=== PATIENT | female | born 1985 | race African-American/Black ===

== ENCOUNTER 2019-01-06 22:18 | Emergency (ER) | payer SELFPAY ==
[~2019-01-06] VITALS: Ht 154.9 cm; Wt 99.8 kg
--- NOTE | 2019-01-06 22:57 | PHYS DOC ---
Adult General Chief Complaint Chief Complaint: CHEST PAIN HPI HPI Patient is a 33-year-old female who presents with complaint of left-sided chest pain that started about 4 and half hours ago. Patient states that onset of chest pain was at rest while she was watching TV. She states that initially the pain was about a 3 out of 10 but currently it is a 7 out of 10. She describes the pain as a heaviness/tightness. She states that she has had a little bit of nausea but states that she always has nausea. 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 Review of Systems Review of Systems Constitutional: Denies fever or chills [] Respiratory: Denies cough or shortness of breath [] Cardiovascular: No additional information not addressed in HPI [] GI: Denies abdominal pain. Positive nausea without vomiting. [] Integument: Denies rash or skin lesions [] All other systems were reviewed and found to be within normal limits, except as documented in this note. Current Medications Current Medications Current Medications Medications (Trade) Dose Ordered Sig/Eduin Start Time Stop Time Status Last Admin Dose Admin Aspirin (Children'S Aspirin) 324 mg 1X ONCE 01/06/19 23:30 01/06/19 23:31 DC Metronidazole (Flagyl) 500 mg 1X ONCE 01/07/19 00:30 01/07/19 00:31 Sodium Chloride 1,000 ml @ 100 mls/hr Q10H 01/06/19 23:30 01/07/19 09:29 01/06/19 23:09 100 MLS/HR Tramadol HCl (Ultram) 50 mg 1X ONCE 01/07/19 00:30 01/07/19 00:31 Allergies Allergies Allergies Coded Allergies Type Severity Reaction Last Updated Verified ketorolac Allergy Intermediate hives 01/06/19 Yes lamotrigine Allergy Intermediate Hives 01/06/19 Yes lisinopril Allergy Intermediate 01/06/19 Yes Physical Exam Physical Exam Constitutional: Well developed, well nourished, no acute distress, non-toxic appearance. [] HENT: Normocephalic, atraumatic, bilateral external ears normal, oropharynx moist, no oral exudates, nose normal. [] Eyes: PERRLA, EOMI, conjunctiva normal, no discharge. [] Neck: Normal range of motion, no tenderness, supple, no stridor. [] Cardiovascular:Heart rate regular rhythm, no murmur [] Lungs & Thorax: Bilateral breath sounds clear to auscultation [] Abdomen: Bowel sounds normal, soft, no tenderness. [] Skin: Warm, dry, no erythema, no rash. [] Extremities: No tenderness, no cyanosis, no clubbing, ROM intact, no edema. [] Neurologic: Alert and oriented X 3, no focal deficits noted. [] Current Patient Data Vital Signs Vital Signs Date Time Temp Pulse Resp B/P (MAP) Pulse Ox O2 Delivery O2 Flow Rate FiO2 01/06/19 22:25 97.9 91 20 148/87 (107) 96 Room Air 97.9 Lab Values Laboratory Tests Test 01/06/19 22:37 01/06/19 22:42 01/06/19 22:46 White Blood Count 9.6 x10^3/uL (4.0-11.0) Red Blood Count 3.90 x10^6/uL (3.50-5.40) Hemoglobin 10.8 g/dL (12.0-15.5) L Hematocrit 33.6 % (36.0-47.0) L Mean Corpuscular Volume 86 fL (79-100) Mean Corpuscular Hemoglobin 28 pg (25-35) Mean Corpuscular Hemoglobin Concent 32 g/dL (31-37) Red Cell Distribution Width 15.6 % (11.5-14.5) H Platelet Count 366 x10^3/uL (140-400) Neutrophils (%) (Auto) 56 % (31-73) Lymphocytes (%) (Auto) 30 % (24-48) Monocytes (%) (Auto) 10 % (0-9) H Eosinophils (%) (Auto) 4 % (0-3) H Basophils (%) (Auto) 1 % (0-3) Neutrophils # (Auto) 5.3 x10^3uL (1.8-7.7) Lymphocytes # (Auto) 2.9 x10^3/uL (1.0-4.8) Monocytes # (Auto) 0.9 x10^3/uL (0.0-1.1) Eosinophils # (Auto) 0.4 x10^3/uL (0.0-0.7) Basophils # (Auto) 0.1 x10^3/uL (0.0-0.2) D-Dimer (Taylor) 0.36 ug/mlFEU (0.00-0.50) Sodium Level 140 mmol/L (136-145) Potassium Level 3.4 mmol/L (3.5-5.1) L Chloride Level 104 mmol/L (98-107) Carbon Dioxide Level 26 mmol/L (21-32) Anion Gap 10 (6-14) Blood Urea Nitrogen 12 mg/dL (7-20) Creatinine 0.7 mg/dL (0.6-1.0) Estimated GFR (Cockcroft-Gault) 117.3 BUN/Creatinine Ratio 17 (6-20) Glucose Level 99 mg/dL (70-99) Calcium Level 9.0 mg/dL (8.5-10.1) Magnesium Level 1.9 mg/dL (1.8-2.4) Total Bilirubin 0.3 mg/dL (0.2-1.0) Aspartate Amino Transferase (AST) 18 U/L (15-37) Alanine Aminotransferase (ALT) 21 U/L (14-59) Alkaline Phosphatase 90 U/L (46-116) Troponin I Quantitative < 0.017 ng/mL (0.000-0.055) Total Protein 7.8 g/dL (6.4-8.2) Albumin 3.3 g/dL (3.4-5.0) L Albumin/Globulin Ratio 0.7 (1.0-1.7) L Urine Collection Type Void Urine Color Yellow Urine Clarity Clear Urine pH 7.0 Urine Specific [place] 1.020 Urine Protein Negative mg/dL (NEG-TRACE) Urine Glucose (UA) Negative mg/dL (NEG) Urine Ketones (Stick) Negative mg/dL (NEG) Urine Blood Negative (NEG) Urine Nitrite Negative (NEG) Urine Bilirubin Negative (NEG) Urine Urobilinogen Dipstick 1.0 mg/dL (0.2 mg/dL) Urine Leukocyte Esterase Moderate (NEG) Urine RBC 6-10 /HPF (0-2) Urine WBC >40 /HPF (0-4) Urine Squamous Epithelial Cells Mod /LPF Urine Amorphous Sediment Present /HPF Urine Bacteria Few /HPF (0-FEW) Urine Mucus Marked /LPF Urine Trichomonas Present POC Urine HCG, Qualitative Hcg negative (Negative) Laboratory Tests 01/06/19 22:37 Laboratory Tests 01/06/19 22:37 EKG EKG [] Interpretation Time: EKG demonstrates normal sinus rhythm with rate of 90. Radiology/Procedures Radiology/Procedures [] Impressions: Chest x-ray demonstrates no acute process Course & Med Decision Making Course & Med Decision Making Pertinent Labs and Imaging studies reviewed. (See chart for details) [] Dragon Disclaimer Dragon Disclaimer This electronic medical record was generated, in whole or in part, using a voice recognition dictation system. Departure Departure Impression: Primary Impression: Atypical chest pain Additional Impression: Trichomoniasis of vagina Disposition: HOME, SELF-CARE Condition: STABLE Patient Instructions: Chest Pain (Nonspecific), Trichomoniasis Scripts Metronidazole (FLAGYL) 500 Mg Tablet 1 TAB PO BID, #14 TAB Prov: SOHA BURCIAGA Jr. DO 01/07/19 Tramadol Hcl (TRAMADOL HCL) 50 Mg Tablet 50 MG PO Q6HRS PRN for PAIN, #10 TAB Prov: SOHA BURCIAGA Jr. DO 01/07/19 Problem Qualifiers SOHA BURCIAGA Jr. DO Jan 06, 2019 22:57
[2019-01-06 22:58] LABS: BILIRUBIN,URINE NEGATIVE (NEG); CLARITY,URINE CLEAR; COLOR,URINE YELLOW; NITRITE,URINE NEGATIVE (NEG); PROTEIN,URINE NEGATIVE (NEG-TRACE)
[2019-01-06 23:06] LABS: BASO # 0.1 x10^3/uL (0.0-0.2); BASO % 1 % (0-3); EOS # 0.4 x10^3/uL (0.0-0.7); EOS % 4 % (0-3); HEMATOCRIT 33.6 % (36.0-47.0); HEMOGLOBIN 10.8 g/dL (12.0-15.5); LYMPH # 2.9 x10^3/uL (1.0-4.8); LYMPH % 30 % (24-48); MEAN CORPUSCULAR HEMOGLOBIN 28 pg (25-35); MEAN CORPUSCULAR HGB CONC 32 g/dL (31-37); MEAN CORPUSCULAR VOLUME 86 fL (79-100); MONO # 0.9 x10^3/uL (0.0-1.1); MONO % 10 % (0-9); NEUT # 5.3 x10^3uL (1.8-7.7); NEUT % 56 % (31-73); PLATELET COUNT 366 x10^3/uL (140-400); RED CELL DISTRIBUTION WIDTH 15.6 % (11.5-14.5); WHITE BLOOD COUNT 9.6 x10^3/uL (4.0-11.0)
[2019-01-06 23:07] LABS: CREATININE 0.7 mg/dL (0.6-1.0); GFR 117.3; POTASSIUM 3.4 mmol/L (3.5-5.1)
[2019-01-06 23:10] LABS: WBC,URINE >40 /HPF (0-4)
[2019-01-06 23:11] LABS: AMORPHOUS SEDIMENT,UR PRESENT /HPF; BACTERIA,URINE FEW /HPF (0-FEW); SQUAMOUS EPITHELIAL CELL,UR MOD /LPF; TRICHOMONAS,URINE PRESENT
[2019-01-06 23:13] LABS: ALBUMIN 3.3 g/dL (3.4-5.0); ALBUMIN/GLOBULIN RATIO 0.7 (1.0-1.7); MAGNESIUM 1.9 mg/dL (1.8-2.4); TOTAL BILIRUBIN 0.3 mg/dL (0.2-1.0); TOTAL PROTEIN 7.8 g/dL (6.4-8.2)
[2019-01-06] MEDS ORDERED: ASPIRIN CHEWABLE 81 MG TABLET. PO ONE (23:30)
[2019-01-06] MEDS ORDERED: IV NORMAL SALINE 1000ML BAG 1,000 ML IV SCH (23:30)
[2019-01-07 00:07] VITALS: BP 145/81
[2019-01-07] MEDS ORDERED: METR500T PO (00:10)
[2019-01-07] MEDS ORDERED: TRAM50TA PO (00:10)
[2019-01-07] MEDS ORDERED: LORazepam 1 MG TABLET PO ONE (00:30)
[2019-01-07] MEDS ORDERED: metroNIDAZOLE 500 MG TABLET PO ONE (00:30)
[2019-01-07] MEDS ORDERED: traMADol 50 MG TABLET PO ONE (00:30)
--- NOTE | 2019-01-07 05:09 | EKG ---
[facility] [address] [place] [address] Test Date: 2019-01-06 Test Time: 22:27:20 Pat Name: MAXIMILIANO POLO Department: Room: Gender: F [employer]: : 1985 Requested By: SOHA BURCIAGA Order Number: [id number] Reading MD: Andrea Arteaga Measurements Intervals [place] Rate: 90 P: 26 GA: 148 QRS: 19 QRSD: 80 T: 23 QT: 364 QTc: 449 Interpretive Statements SINUS RHYTHM NORMAL ECG RI6.01 No previous ECG available for comparison Electronically Signed On 01-12-2019 13:10:54 CDT by Andrea Arteaga
--- NOTE | 2019-01-07 08:34 | RAD ---
Examination: PORTABLE CHEST 1V History: CHEST PAIN X TONIGHT Comparison/Correlation: None Findings: Portable upright frontal view of the chest was obtained. Heart size and pulmonary vasculature are normal. No infiltrate or pleural effusion. No pneumothorax. Bony structures are unremarkable. Impression: No active disease. Electronically signed by: Mark Monroe MD (01/07/2019 8:31 AM) [id number]
== END 2019-01-07 00:45 | disposition home or self-care (01) ==
LOC: ER 22:18
DX: R07.89 Other chest pain (principal); A59.01 Trichomonal vulvovaginitis; R11.0 Nausea; Z86.718 Personal history of other venous thrombosis and embolism; Z79.82 Long term (current) use of aspirin; Z88.8 Allergy status to other drugs, medicaments and biological substances
CPT/HCPCS: 36415; 71045; 80053; 81001; 81025; 83735; 84484; 85025; 85379; 87086; 93005; 99285; J7030

== ENCOUNTER 2019-01-22 17:40 | Emergency (ER) | payer SELFPAY ==
[~2019-01-22] VITALS: Ht 154.9 cm; Wt 99.8 kg
[~2019-01-22 17:40] MED LIST: METR500T PO; TRAM50TA PO
[2019-01-22 17:43] VITALS: BP 170/96
[2019-01-22] MEDS ORDERED: METH-37 PO (17:57)
--- NOTE | 2019-01-22 17:58 | PHYS DOC ---
Past Medical History Past Medical History: DVT, Hypertension (ABI HANNA) Past Surgical History: Cholecystectomy, Tubal ligation, Other Additional Past Surgical Histo: RT knee, rotator cuff repair (ABI HANNA) Alcohol Use: Occasionally Drug Use: None (ABI HANNA) Adult General Chief Complaint Chief Complaint: LOWER BACK PAIN OR INJURY [facility] HPI Patient is a 33 year old female presents to the ED complaining of back pain times one day ago. 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 Describes the pain as sharp. Rates pain as 6 out of 10. States that she has pain with range of motion. Patients able to ambulate without assistance. Denies bowel/bladder changes, saddle anesthesia, fever, radiating pain, weakness, nausea/vomiting, diarrhea, chest pain or shortness of breath. (ABI HANNA) Review of Systems Review of Systems Constitutional: Denies fever or chills [] Eyes: Denies change in visual acuity, redness, or eye pain [] HENT: Denies nasal congestion or sore throat [] Respiratory: Denies cough or shortness of breath [] Cardiovascular: No additional information not addressed in HPI [] GI: Denies abdominal pain, nausea, vomiting, bloody stools or diarrhea [] : Denies dysuria or hematuria [] Musculoskeletal: Complains of back pain. Denies joint pain [] Integument: Denies rash or skin lesions [] Neurologic: Denies headache, focal weakness or sensory changes [] All other systems were reviewed and found to be within normal limits, except as documented in this note. (ABI HANNA) Allergies Allergies Allergies Coded Allergies Type Severity Reaction Last Updated Verified ketorolac Allergy Intermediate hives 01/06/19 Yes lamotrigine Allergy Intermediate Hives 01/06/19 Yes lisinopril Allergy Intermediate 01/06/19 Yes (GOLLAPALLI,JACI E DO) Physical Exam Physical Exam Constitutional: Well developed, well nourished, no acute distress, non-toxic appearance. [] HENT: Normocephalic, atraumatic. Eyes: PERRLA, EOMI, conjunctiva normal, no discharge. [] Neck: Normal range of motion, no tenderness, supple, no stridor. [] Cardiovascular:Heart rate regular rhythm, no murmur [] Lungs & Thorax: Bilateral breath sounds clear to auscultation [] Abdomen: Bowel sounds normal, soft, no tenderness, no masses, no pulsatile masses. [] Skin: Warm, dry, no erythema, no rash. [] Back: Mild right lateral muscle spasm. No bony tenderness, FROM, NV intact. No overlying skin changes. no CVA tenderness. [] Extremities: No tenderness, no cyanosis, no clubbing, ROM intact, no edema. [] Neurologic: Alert and oriented X 3, normal motor function, normal sensory function, no focal deficits noted. DTR's intact.[] Psychologic: Affect normal, judgement normal, mood normal. [] (ABI HANNA) Current Patient Data Vital Signs Vital Signs Date Time Temp Pulse Resp B/P (MAP) Pulse Ox O2 Delivery O2 Flow Rate FiO2 01/22/19 17:43 98.6 77 16 170/96 (120) 99 Room Air 98.6 (JACI MACIEL DO) EKG EKG [] (ABI HANNA) Radiology/Procedures Radiology/Procedures [] (ABI HANNA) Course & Med Decision Making Course & Med Decision Making Pertinent Labs and Imaging studies reviewed. (See chart for details) []No bony tenderness. Full range of motion. Neurovascular intact. No focal neural deficits. Patient able to ambulate without assistance. Discussed symptomatic treatment and follow-up outpatient if pain persists. Provided contact information/education. Discussed reasons to return to the ED. Patient understands and agrees with plan. (ABI HANNA) Dragon Disclaimer Dragon Disclaimer This electronic medical record was generated, in whole or in part, using a voice recognition dictation system. (ABI HANNA) Dragon Disclaimer The mid level provide has independently evaluated and treated the patient. I was available for consultation by the mid level provider. I agree with the care provided by the mid level provider. (JACI MACIEL DO) Departure Departure Impression: Primary Impression: Muscle strain Disposition: 01 HOME, SELF-CARE Condition: IMPROVED Referrals: NO PCP (PCP) ERIN MARK II, MD Patient Instructions: Muscle Strain Scripts Methocarbamol (ROBAXIN) 500 Mg Tablet 1 TAB PO BID for 5 Days, #10 TAB Prov: ABI HANNA 01/22/19 ABI HANNA January 22, 2019 17:58 JACI MACIEL DO January 23, 2019 04:39
== END 2019-01-22 18:08 | disposition home or self-care (01) ==
LOC: ER 17:40
DX: S39.012A Strain of muscle, fascia and tendon of lower back, initial encounter (principal); I10 Essential (primary) hypertension; Z86.718 Personal history of other venous thrombosis and embolism; Z98.51 Tubal ligation status; Z90.49 Acquired absence of other specified parts of digestive tract; Z88.8 Allergy status to other drugs, medicaments and biological substances; X50.9XXA Other and unspecified overexertion or strenuous movements or postures, initial encounter; Y93.89 Activity, other specified; Y92.89 Other specified places as the place of occurrence of the external cause; Y99.8 Other external cause status
CPT/HCPCS: 99283

== ENCOUNTER 2019-02-17 17:00 | Emergency (ER) | payer OTHER, SELFPAY ==
[~2019-02-17] VITALS: Ht 154.9 cm; Wt 99.8 kg
[~2019-02-17 17:00] MED LIST changes: +METH-37 PO
--- NOTE | 2019-02-17 17:40 | PHYS DOC ---
Past Medical History Past Medical History: DVT, Hypertension Past Surgical History: Cholecystectomy, Tubal ligation, Other Additional Past Surgical Histo: RT knee, rotator cuff repair Alcohol Use: Occasionally Drug Use: None Adult General Chief Complaint Chief Complaint: LOWER EXT PAIN HPI HPI Patient is a 33 year old female with a history of DVT presents to the ED complaining of left calf pain x 3 days ago. Patient had a DVT in September. Patient also has a history of high blood pressure. States that she noted she started to have left calf pain and states that it feels similar to the DVT in her right leg. Patient is currently not on any blood thinners. Describes her pain as uncomfortable. Rates the pain as 4 out of 10. Patient able to ambulate without assistance. Denies fever, injury, weakness, paresthesias, swelling, chest pain, shortness of breath, recent travel or use of blood thinners. Review of Systems Review of Systems Constitutional: Denies fever or chills [] Eyes: Denies change in visual acuity, redness, or eye pain [] HENT: Denies nasal congestion or sore throat [] Respiratory: Denies cough or shortness of breath [] Cardiovascular: No additional information not addressed in HPI [] GI: Denies abdominal pain, nausea, vomiting, bloody stools or diarrhea [] : Denies dysuria or hematuria [] Musculoskeletal: Complains of left calf pain. Denies back pain or joint pain [] Integument: Denies rash or skin lesions [] Neurologic: Denies headache, focal weakness or sensory changes [] All other systems were reviewed and found to be within normal limits, except as documented in this note. Allergies Allergies Allergies Coded Allergies Type Severity Reaction Last Updated Verified ketorolac Allergy Intermediate hives 01/06/19 Yes lamotrigine Allergy Intermediate Hives 01/06/19 Yes lisinopril Allergy Intermediate 01/06/19 Yes Physical Exam Physical Exam Constitutional: Well developed, well nourished, no acute distress, non-toxic appearance. [] HENT: Normocephalic, atraumatic Cardiovascular:Heart rate regular rhythm, no murmur [] Lungs & Thorax: Bilateral breath sounds clear to auscultation [] Abdomen: Bowel sounds normal, soft, no tenderness, no masses, no pulsatile masses. [] Skin: Warm, dry, no erythema, no rash. [] Back: No tenderness, no CVA tenderness. [] Extremities: mild left calf tenderness, no cyanosis, no clubbing, ROM intact, no edema. Negative homans.[] Neurologic: Alert and oriented X 3, normal motor function, normal sensory function, no focal deficits noted. [] Psychologic: Affect normal, judgement normal, mood normal. [] Current Patient Data Vital Signs Vital Signs Date Time Temp Pulse Resp B/P (MAP) Pulse Ox O2 Delivery O2 Flow Rate FiO2 02/17/19 17:52 98.9 79 18 144/99 (114) 99 Room Air 98.9 EKG EKG [] Radiology/Procedures Radiology/Procedures []PROCEDURE: VENOUS LOWER EXTREMITY LEFT Left lower extremity venous duplex study 02/17/2019 Clinical History: Left leg pain. Technique: Using a combination of real time ultrasound imaging and color-flow and pulse Doppler imaging techniques along with graded compression and augmentation, duplex evaluation of the deep venous system of the left lower extremity was performed. Multiple images were obtained. Findings: There is no sonographic evidence of deep venous thrombosis involving the visualized deep venous structures of the left lower extremity. Impression: Negative study. Course & Med Decision Making Course & Med Decision Making Pertinent Labs and Imaging studies reviewed. (See chart for details) []Discussed imaging findings with patient. Patient is negative for DVT. Discussed symptomatic treatment and follow-up with PCP outpatient. Provided contact information/education. Discussed reasons to return to the ED. Patient understands and agrees with plan. Dragon Disclaimer Dragon Disclaimer This electronic medical record was generated, in whole or in part, using a voice recognition dictation system. Departure Departure Impression: Primary Impression: Muscle strain Disposition: 01 HOME, SELF-CARE Condition: IMPROVED Referrals: NO PCP (PCP) OSVALDO BOATENG MD Patient Instructions: Muscle Strain ABI HANNA February 17, 2019 17:40
[2019-02-17 17:52] VITALS: BP 144/99
--- NOTE | 2019-02-17 17:58 | RAD ---
Left lower extremity venous duplex study 02/17/2019 Clinical History: Left leg pain. Technique: Using a combination of real time ultrasound imaging and color-flow and pulse Doppler imaging techniques along with graded compression and augmentation, duplex evaluation of the deep venous system of the left lower extremity was performed. Multiple images were obtained. Findings: There is no sonographic evidence of deep venous thrombosis involving the visualized deep venous structures of the left lower extremity. Impression: Negative study. Electronically signed by: Marvin Gutierrez MD (02/17/2019 5:54 PM) [employer]
== END 2019-02-17 18:17 | disposition home or self-care (01) ==
LOC: ER 17:00
DX: S86.812A Strain of other muscle(s) and tendon(s) at lower leg level, left leg, initial encounter (principal); I10 Essential (primary) hypertension; Z90.49 Acquired absence of other specified parts of digestive tract; Z98.51 Tubal ligation status; Z86.718 Personal history of other venous thrombosis and embolism; Z88.8 Allergy status to other drugs, medicaments and biological substances; X58.XXXA Exposure to other specified factors, initial encounter; Y93.89 Activity, other specified; Y92.89 Other specified places as the place of occurrence of the external cause; Y99.8 Other external cause status
CPT/HCPCS: 93971; 99284

== ENCOUNTER 2019-11-30 22:11 | Emergency (ER) | payer OTHER ==
[~2019-11-30] VITALS: Ht 154.9 cm; Wt 103.0 kg
[2019-11-30 23:10] VITALS: BP 132/81
[2019-12-01] MEDS ORDERED: HYDROcodone/APAP 5/325MG 1 TAB TABLET PO ONE (00:45)
--- NOTE | 2019-12-01 01:06 | RAD ---
Right lower extremity venous ultrasound, : History: Right lower leg pain, history of DVT Duplex evaluation including grayscale, color flow and spectral Doppler analysis was performed. The femoral and popliteal veins show no filling defects to suggest DVT. The visualized calf veins are unremarkable. IMPRESSION: There is no sonographic evidence of deep vein thrombosis in the right lower extremity Electronically signed by: Layton Cantu MD (12/01/2019 1:03 AM) [id number]
--- NOTE | 2019-12-01 01:33 | PHYS DOC ---
Past Medical History Past Medical History: Asthma, DVT, Hypertension Past Surgical History: Cholecystectomy, Tubal ligation, Other Additional Past Surgical Histo: RT knee, rotator cuff repair Smoking Status: Current Every Day Smoker Alcohol Use: Occasionally Drug Use: None Adult General Chief Complaint Chief Complaint: LOWER EXT PAIN HPI HPI Patient is a 34 year old AA female, accompanied by her significant other, who presents to the ER with complaints of right calf pain. PT reports a hx of DVTs and states that she takes Eliquis. She denies missing any doses of her medication. Pt also denies any recent injury or falls. She denies any recent long car rides or flights. Currently, she rates the pain a 9/10 on the pain scale, she denies any alleviating factors. Review of Systems Review of Systems Complete ROS is negative unless otherwise noted in HPI. Current Medications Current Medications Current Medications Medications (Trade) Dose Ordered Sig/Eduin Start Time Stop Time Status Last Admin Dose Admin Acetaminophen/ Hydrocodone Bitart (Lortab 5/325) 1 tab 1X ONCE 12/01/19 00:45 12/01/19 00:46 DC 12/01/19 00:46 1 TAB Allergies Allergies Allergies Coded Allergies Type Severity Reaction Last Updated Verified ketorolac Allergy Intermediate hives 01/06/19 Yes lamotrigine Allergy Intermediate Hives 01/06/19 Yes lisinopril Allergy Intermediate 01/06/19 Yes Physical Exam Physical Exam See Above Constitutional: Well developed, well nourished, no acute distress, non-toxic appearance, obese. [] HENT: Normocephalic, atraumatic, bilateral external ears normal, nose normal. [] Eyes: PERRLA, EOMI, conjunctiva normal, no discharge. [] Neck: Normal range of motion, no stridor. [] Cardiovascular:Heart rate regular rhythm Lungs & Thorax: Respirations even and unlabored, no retractions, no respiratory distress Skin: Warm, dry, no erythema, no rash. [] Extremities: RLE: calf TTP, no cyanosis, no clubbing, ROM intact, no edema, 2+ pedal and posterior tibial pulses. [] Neurologic: Alert and oriented X 3, no focal deficits noted. [] Psychologic: Affect normal, judgement normal, mood normal. [] Current Patient Data Vital Signs Vital Signs Date Time Temp Pulse Resp B/P (MAP) Pulse Ox O2 Delivery O2 Flow Rate FiO2 11/30/19 23:10 98.3 73 18 132/81 (98) 96 Room Air 98.3 EKG EKG [] Radiology/Procedures Radiology/Procedures PROCEDURE: VENOUS LOWER EXTREMITY RIGHT Right lower extremity venous ultrasound, : History: Right lower leg pain, history of DVT Duplex evaluation including grayscale, color flow and spectral Doppler analysis was performed. The femoral and popliteal veins show no filling defects to suggest DVT. The visualized calf veins are unremarkable. IMPRESSION: There is no sonographic evidence of deep vein thrombosis in the right lower extremity [] Course & Med Decision Making Course & Med Decision Making Pertinent Labs and Imaging studies reviewed. (See chart for details) [] Dragon Disclaimer Dragon Disclaimer This electronic medical record was generated, in whole or in part, using a voice recognition dictation system. Departure Departure Impression: Primary Impression: Pain of right calf Disposition: HOME, SELF-CARE Condition: STABLE Referrals: UNKNOWN PCP NAME (PCP) Patient Instructions: Leg Cramps Additional Instructions: TYLENOL OR IBUPROFEN NEEDED FOR PAIN. FOLLOW UP WITH YOUR PRIMARY CARE DOCTOR IN 1-2 DAYS IF SYMPTOMS PERSIST, RETURN TO THE ER IF SYMPTOMS WORSEN. SHIRIN CRISTOBAL APRN Dec 01, 2019 01:33
== END 2019-12-01 01:50 | disposition home or self-care (01) ==
LOC: ER 22:11
DX: M79.661 Pain in right lower leg (principal); I10 Essential (primary) hypertension; J45.909 Unspecified asthma, uncomplicated; F17.200 Nicotine dependence, unspecified, uncomplicated; Z86.718 Personal history of other venous thrombosis and embolism; Z88.6 Allergy status to analgesic agent; Z88.8 Allergy status to other drugs, medicaments and biological substances
CPT/HCPCS: 93971; 99284-25